=== PATIENT | female | born 1990 | race Caucasian/White ===

== ENCOUNTER 2023-08-02 17:35 | Emergency (ER) | payer OTHER ==
[~2023-08-02] VITALS: Ht 167.6 cm; Wt 75.8 kg
[2023-08-02 17:49] VITALS: BP 122/76; PULSE 78; RESP 20; TEMP 97.9; O2SAT 97
[2023-08-02 21:37] LABS: BILIRUBIN,URINE NEGATIVE (NEGATIVE); BLOOD, URINE NEGATIVE (NEGATIVE); COLOR,URINE YELLOW (YELLOW); LEUKOCYTE ESTERASE ,URINE TRACE (NEGATIVE); NITRITE, URINE POSITIVE (NEGATIVE); PH,URINE 6.5 (5.0-9.0); PROTEIN,URINE NEGATIVE (NEGATIVE); UGLUCOSE NEGATIVE (NEGATIVE); UROBILINOGEN,URINE 0.2 EU/dL (0.2 - 1)
[2023-08-02 21:47] LABS: APPEARANCE,URINE SLIGHTLY BLOODY (CLEAR); BACTERIA,URINE >30 (MANY) /HPF (None Seen); MUCUS,URINE 1+ /LPF (None Seen); RBC,URINE 0-5 /HPF (0-5); SQUAMOUS EPITHELIAL CELL,UR 4-10 (MOD) /LPF (0-3 (FEW))
[2023-08-02] MEDS ORDERED: CEPH-588 PO (21:53)
[2023-08-02 22:18] VITALS: BP 118/71; PULSE 74; RESP 16; TEMP 97.9; O2SAT 97
== END 2023-08-02 22:18 | disposition home or self-care (01) ==
LOC: MED 17:35
DX: N39.0 Urinary tract infection, site not specified (principal); Z79.899 Other long term (current) drug therapy; Z98.890 Other specified postprocedural states
CPT/HCPCS: 76856; 81001; 81025; 87086; 99284